=== PATIENT | female | born 1955 | race Caucasian/White ===

== ENCOUNTER 2024-01-19 11:04 | Emergency (ER) | payer MEDICARE, OTHER, SELFPAY ==
[2024-01-19 11:12] VITALS: BP 140/82
[2024-01-19] MEDS: NSS 1000 IV (12:00)
--- NOTE | 2024-01-19 12:10 | ED.GENMED ---
History of Present Illness
General
Chief Complaint: Abdominal Pain
Time Seen by Provider: 01/19/24 11:53
Travel History
Have you had any contact with someone who has COVID-19?: No
Do you have any symptoms of coronavirus? Fever > 100 degrees, chills, cough, shortness of breath, sore throat, loss of taste or smell, muscle aches, or headache?: No
History of Present Illness
History of Present Illness:
68-year-old female with history of hypertension presents to the emergency department for ration of generalized abdominal discomfort lack of appetite for the past 3 to 4 days. She had 1 bout of vomiting started the symptoms off but has not had any
vomiting or diarrhea since then. Pain is mild in nature, no obvious provoking or palliating factors. No fevers, chills, night sweats, chest pain, shortness of breath. Only prior abdominal surgery is unilateral salpingectomy due to ectopic
Past History
Past History
ED Past Medical History: HTN and Psychiatric (Depression)
ED Past Surgical History: Gynecological
Social History
Tobacco: Non-smoker
Review of Systems
Review of Systems
Allergies reviewed?: Yes
All Other Systems: ROS reviewed and negative except as documented in HPI and ROS
Phy Exam
Physical Exam
Physical Exam:
GEN: Well appearing, NAD, WDWN
Eyes: PERRLA, EOMs intact, no scleral icterus
HENT: NCAT, oral mucosa moist
Lungs: CTAB, no wheezes, rales, rhonchi, normal chest wall excursion
Cardiac: RRR, no M/R/G, no peripheral edema. Radial pulses 2+ bilat
Abdomen: S, NT, ND, NABS, no masses or hepatosplenomegaly
Neuro: AO x 3, cranial nerves II through XII grossly intact
MSK: No gross deformity or ecchymosis. No edema. No digital clubbing
Skin: No rashes, petechiae. Normal color, no pallor or jaundice.
Psych: Calm, cooperative, proper hygiene
Course
Orders/Labs/Results
Orders:
Orders
01/19/24 12:08
0.9% Sodium Chloride 1000 ml [Nss] 1,000 ml IV BOLUS
Famotidine [Pepcid] 20 mg IV NOW STA
Sucralfate [Carafate] 1 gram PO NOW STA
01/19/24 12:09
Electrocardiogram (*1) Urgent
Reason for Study: Abdominal Pain
EKG- Treatment ONCE
01/19/24 13:18
Complete Blood Count/With Diff Urgent
Comprehensive Metabolic Panel Urgent
Lipase Urgent
01/19/24 13:44
US Abdomen Complete/Upper Urgent
Comment:
Reason For Exam: abd pain transaminitis
Abnormal Lab Results
01/19/24
13:18
WBC 11.3 H 10^3/uL
(4.8-10.8)
MCH 32.7 H pg
(27.0-31.0)
Plt Count 466 H 10^3/uL
(130-400)
Abs Immat Gran (auto) 0.1 H 10^3/uL
(0-0.05)
Absolute Neuts (auto) 8.9 H 10^3/uL
(1.4-6.5)
Absolute Monos (auto) 1.1 H 10^3/uL
(0.1-0.6)
Neutrophils % 78.6 H %
(42.2-75.2)
Lymphocytes % 10.9 L %
(20.5-51.1)
Monocytes % 9.8 H %
(1.7-9.3)
Chloride 95 L mmol/L
(98-107)
BUN 42 H mg/dl
(7-17)
Creatinine 1.1 H mg/dL
(0.6-1.0)
Calcium 11.1 H mg/dl
(8.4-10.2)
Total Bilirubin 1.7 H mg/dl
(0.2-1.3)
AST 46 H U/L
(14-36)
Total Protein 8.3 H g/dl
(6.3-8.2)
Lipase 579 H U/L
(23-300)
01/19/24 13:18
01/19/24 13:18
Vital Signs
Initial and Last Documented VS:
Initial Vital Signs
Temp Pulse Resp BP Pulse Ox
98.3 F 93 18 140/82 98
01/19/24 11:12 01/19/24 11:12 01/19/24 11:12 01/19/24 11:12 01/19/24 11:12
Last Documented Vital Signs
Temp Pulse Resp BP Pulse Ox
98.3 F 85 18 176/81 99
01/19/24 11:12 01/19/24 16:02 01/19/24 16:02 01/19/24 16:02 01/19/24 16:02
MDM/Problems Addressed
MDM/Problems Addressed:
Unclear etiology to the patient's pain. Due to the mild transaminitis and hyperbilirubinemia obtain ultrasound of the abdomen that showed no evidence for biliary disease no evidence for cholelithiasis. Doubt choledocholithiasis although this is
not definitively ruled out despite the lack of gallstones. May be a self-limited viral syndrome. She has a reassuring abdominal exam and do not feel there is any indication for CT. Discussed supportive care
*Critical Care Note
Total Time (30-74mins, 75-104mins- exclusive of procedures): Not Applicable
ED Attending Note
-
Portions of this chart may have been created with voice recognition software.� Occasional wrong word or��sound alike� substitutions may have occurred due to the inherent limitations of voice recognition software.
Discharge Plan
Departure
Patient Disposition: Home (Routine Discharge)
Date of Disposition: 01/19/24
Time of Disposition: 15:46
Patient with high blood pressure during this ER visit?: No
Discharge Problem:
Generalized abdominal pain, Acute dehydration
Instructions: Abdominal Pain
Prescriptions:
New
ondansetron 4 mg tablet,disintegrating
4 mg PO TIDPRN PRN (Reason: nausea/vomiting) Qty: 10 0RF
No Action
tramadol 50 MG tablet
50 mg PO Q6HPRN PRN (Reason: Pain) Qty: 12 0RF
Referrals:
Sydnee Mccarthy PA-C [Family Provider] -
Activity Restrictions/Additional Instructions:
The cause of your symptoms is not clear
We suspect you had a transient viral illness and giving you fluids/nausea medication should help
Please follow up with your primary care physician in 2-3 days if symptoms persist
Interventions
Interventions:
*Risk Screen - Suicide Last Done: 01/19/24 11:12
*General Assessment Last Done: 01/19/24 11:12
*Neglect/Abuse Screening Last Done: 01/19/24 11:12
ED- Fall Risk Assessment Last Done: 01/19/24 16:31
*ED COVID-19 Vaccine History Last Done: 01/19/24 15:04
*Nursing Disposition Last Done: 01/19/24 16:31
TB-Juboyp-Zecxcvvbgf Assessment Last Done: 01/19/24 12:00
Discharge Date and Time
Discharge Date/Time: 01/19/24 16:31
Print Language: EQUATORIAL GUINEAN
[2024-01-19] MEDS: CARAFATE 1 GRAM PO (13:23)
[2024-01-19] MEDS: PEPCID 20 MG IV (13:23)
[2024-01-19 13:27] LABS: % Basophils 0.3 % (0-2); % Immature Granulocytes 0.4 % (0-0.5); % Lymphocytes 10.9 % (20.5-51.1); % Monocytes 9.8 % (1.7-9.3); % Neutrophils 78.6 % (42.2-75.2); Absolute Immature Granulocytes 0.1 10^3/uL (0-0.05); Absolute Lymphocytes 1.2 10^3/uL (1.2-3.4); Absolute Monocytes 1.1 10^3/uL (0.1-0.6); Absolute Neutrophils 8.9 10^3/uL (1.4-6.5); Hematocrit 38.9 % (37.0-47.0); Hemoglobin 14.4 g/dL (12.0-16.0); Mean Corpuscular Hgb 32.7 pg (27.0-31.0); Mean Corpuscular Volume 88.2 fL (81.0-99.0); Mean Platelet Volume 8.4 fL (7.4-10.4); Nucleated Red Blood Cells % 0 %; Platelet Count 466 10^3/uL (130-400); Red Blood Cell Count 4.41 10^6/uL (4.20-5.40); Red Cell Dist. Width 12.9 % (11.5-14.5); White Blood Cell Count 11.3 10^3/uL (4.8-10.8)
[2024-01-19 13:42] LABS: ALT (SGPT) 25 U/L (0-35); AST (SGOT) 46 U/L (14-36); Albumin 4.9 g/dl (3.5-5.0); Alkaline Phosphatase 84 U/L (38-126); Blood Urea Nitrogen 42 mg/dl (7-17); Calcium 11.1 mg/dl (8.4-10.2); Carbon Dioxide 28 mmol/L (22-30); Chloride 95 mmol/L (98-107); Glucose 98 mg/dl (70-99); Lipase 579 U/L (23-300); Potassium 3.5 mmol/L (3.5-5.1); Sodium 135 mmol/L (135-145); Total Bilirubin 1.7 mg/dl (0.2-1.3); Total Protein 8.3 g/dl (6.3-8.2); eGFR 54.73
[2024-01-19 16:02] VITALS: BP 176/81
== END 2024-01-19 16:31 | disposition home or self-care (01) ==
LOC: EMR 11:04
PROVIDERS: Physician Assistant; EMERGENCY PHYSICIAN Emergency Medicine; FAMILY PHYSICIAN Physician Assistant
DX: R10.84 Generalized abdominal pain (principal); E86.0 Dehydration; I10 Essential (primary) hypertension
CPT/HCPCS: 99285; 96374; 96361; 76700; 80053; 83690; 85025; 93005

== ENCOUNTER 2024-05-28 19:07 | Emergency (ER) | payer MEDICARE, OTHER, SELFPAY ==
[2024-05-28 19:09] VITALS: BP 164/81
--- NOTE | 2024-05-28 19:12 | EDRN ---
Pt refusing CT head and XRAYS at this time.
--- NOTE | 2024-05-28 20:40 | ED.MUSCINJ ---
HPI-Injury
General
Chief Complaint: Fall
Source: patient
Exam Limitations: none
Time Seen by Provider: 05/28/24 20:00
Nursing documentation reviewed up to this point in time: agreed with
History of Present Illness-Injury
Is this injury a work related problem?: No
Is pt an associate of [facility]?: No
Initial Injury comments:
Patient reports trip and fall. Hit face on pavement. No LOC. Notes abrasions and swelling to nose and upper lip, laceration to dorsum of left hand. Incident occurred this afternoon
Past History
Past History
ED Past Medical History: HTN and Psychiatric (Depression)
ED Past Surgical History: Gynecological
Social History
Tobacco: Non-smoker
Review of Systems
Review of Systems
Allergies reviewed?: Yes
All Other Systems: ROS reviewed and negative except as documented in HPI and ROS
Constitutional: Reports no symptoms
EENT: Reports no symptoms
ABD/GI: Reports no symptoms
Musculoskeletal: Reports no symptoms
Skin: Reports other (abrasions to nose, upper lip. Laceration to dorsum of left hand.)
Neurological: Reports no symptoms
Psychiatric: Reports no symptoms
Musculoskeletal Injury Exam
Musculoskeletal Injury Exam
Left Hand:
Pain with Movement?: None
Tender to palpation?: None
External deformity and angulation?: None
Joint effusion?: None
Contusion?: Moderate
Hematoma-local bleeding into tissue?: Mild
Strain- Sprain- Tear (Connective tissue injury)?: None
Crepitus with movement?: No
Joint instability?: No
Malalignment/deformity?: No
Range of motion: Full
Distal skin color and temperature: normal-warm & good color
Normal distal neurovascular exam?: Yes
Peripheral Pulses: radial (left): 3+
Skin Exam
Laceration
Left Dorsal Hand:
Length in cm: 3
Orientation: vertical
Type of Laceration: simple
Any active bleeding?: no active bleeding
Distal skin color and temperature: normal-warm & good color
Normal distal neurovascular exam: Yes
Range of motion: full
Abrasion
Nose:
Description of abrasion: superfical/clean
Upper Lip:
Description of abrasion: superfical/clean
Phy Exam
General Physical Exam
General Presentation: well appearing and no apparent distress
General age: appears stated age
General Skin: warm and dry
General Habitus: normal
General Mental: alert
Neurological Exam
Neurological Exam: alert, oriented x3, CN II-XII intact, no motor deficits, no sensory deficits and speech normal
[place] Coma Scale
Eye Opening: Spontaneous
Verbal Response: Oriented
Motor Response: Obeys Commands
GCS Total Score: 15
Musculoskeletal Exam
Musculoskeletal Exam: full ROM and neuro vasc intact
Skin Exam
Skin Exam: normal color, warm/dry, no rash and other (superficial abrasions to nose, upper lip. Laceration dorsum of left hand)
Psychiatric Exam
Psychiatric Exam: normal mood/affect
Injury Course
Orders/Labs/Results
Orders:
Orders
05/28/24 20:36
Tetanus/Diphth/Acelpertussis [Adacel] 0.5 ml IM .ONCE ONE
MDM/Problems Addressed
Differential Diagnosis Includes:
Patient to ED s/p fall, hit face on pavement. Multiple superficial abrasions to nose and upper lip. No active bleeding. Minimal swelling to bridge of nose, pateint has declined xray as well as head CT. Laceration dorsum of left hand. Full
nonpainful ROM to hand. She has declined xray. DOubtful for fx. Will discharge home. She was ginve instructions on s/s to return to ED and she is agreeable to plan.
*Critical Care Note
Total Time (30-74mins, 75-104mins- exclusive of procedures): Not Applicable
ED Attending Note
-
Portions of this chart may have been created with voice recognition software.� Occasional wrong word or��sound alike� substitutions may have occurred due to the inherent limitations of voice recognition software.
Discharge Plan
Departure
Patient Disposition: Home (Routine Discharge)
Date of Disposition: 05/28/24
Time of Disposition: 20:36
Patient with high blood pressure during this ER visit?: No
Condition: Good
Covid-19: Not Applicable
Discharge Problem:
Head injury, Hand laceration
Instructions: Wound Care (DC), Head Injury in Adults (DC), Contusion (DC), Laceration Repair With Stitches (DC), Skin Abrasions (DC)
Prescriptions:
No Action
tramadol 50 MG tablet
50 mg PO Q6HPRN PRN (Reason: Pain) Qty: 12 0RF
ondansetron 4 mg tablet,disintegrating
4 mg PO TIDPRN PRN (Reason: nausea/vomiting) Qty: 10 0RF
Referrals:
Sydnee Mccarthy PA-C [Family Provider] - (Sutures can be removed in 7-10 days)
Interventions
Interventions:
*Risk Screen - Suicide Last Done: 05/28/24 19:09
*General Assessment Last Done: 05/28/24 20:14
*Neglect/Abuse Screening Last Done: 05/28/24 19:09
ED- Fall Risk Assessment Last Done: 05/28/24 20:14
*ED COVID-19 Vaccine History Last Done: 05/28/24 20:14
ED-Musculoskeletal Assessment Last Done: 05/28/24 20:14
ED- Neurological Assessment Last Done: 05/28/24 20:14
ED-Skin Assessment Last Done: 05/28/24 20:14
Discharge Date and Time
Print Language: LITHUANIAN
[2024-05-28] MEDS: ADACEL 0.5 ML IM (20:44)
== END 2024-05-28 20:45 | disposition home or self-care (01) ==
LOC: EMR 19:07
PROVIDERS: EMERGENCY PHYSICIAN Emergency Medicine; FAMILY PHYSICIAN Physician Assistant
DX: S09.90XA Unspecified injury of head, initial encounter (principal); S61.412A Laceration without foreign body of left hand, initial encounter; S60.222A Contusion of left hand, initial encounter; S00.31XA Abrasion of nose, initial encounter; S00.511A Abrasion of lip, initial encounter; M79.89 Other specified soft tissue disorders; W01.0XXA Fall on same level from slipping, tripping and stumbling without subsequent striking against object, initial encounter; Y92.480 Sidewalk as the place of occurrence of the external cause; Z23 Encounter for immunization; I10 Essential (primary) hypertension; F32.A Depression, unspecified
CPT/HCPCS: 99282; 90471; 90715